=== PATIENT | male | born 1960 | race Caucasian/White ===

== ENCOUNTER → 2022-02-03 | Outpatient (CLI) | payer OTHER, SELFPAY ==
--- NOTE | 2022-02-03 06:47 | ECHOCS_ITS ---
Version 2 Reason For Study: Abn EKG Procedure This was a 2D Doppler, Color Flow transthoracic echocardiogram. Contrast injection was performed. Exam performed in department. Left Ventricle Normal LV size. Left ventricular systolic function is normal. The estimated ejection fraction is 60 %. Stage 1 diastolic dysfunction. No regional wall motion abnormalities noted. Right Ventricle Normal RV size. Normal systolic function. Atria Normal left atrium. Normal right atrium. Probable patent foramen ovale. Mitral Valve Normal mitral valve. Mild (1+) eccentric mitral valve insufficiency. Tricuspid Valve Normal tricuspid valve. Mild tricuspid valve insufficiency. Pulmonary artery systolic pressure is 20 mmHg. Aortic Valve Normal aortic valve. Trisinus/trileaflet aortic valve. Trivial aortic valve insufficiency. Pulmonic Valve Normal pulmonic valve. Trivial pulmonic valve insufficiency identified. Great Vessels Normal aortic root. The pulmonary artery is normal size. Normal inferior vena cava. Pericardium/Pleural No pericardial effusion. Medication Performed a rapid injection of agitated mix of 9 cc saline and 1cc air to assess for atrial septal defect. Diluted definity 2ml given slow IV push to enhance endocardial definition. MMode/2D Measurements & Calculations LVIDd: 5.3 cm IVSd: 0.90 cm Ao root diam: 3.6 cm LVIDs: 3.3 cm LVPWd: 1.0 cm RVDd: 3.7 cm FS: 37.9 % LAV(MOD-bp): 42.1 ml LVAd ap4: 31.6 cm2 LVAd ap2: 31.4 cm2 LAV(MOD-bp) Indexed: 21.1 ml/m2 LVLd ap4: 7.9 cm LVLd ap2: 7.6 cm LAV(MOD-sp2): 40.3 ml EDV(MOD-sp4): 103.0 ml EDV(MOD-sp2): 107.2 ml LAV(MOD-sp4): 40.9 ml EDV(sp4-el): 106.9 ml EDV(sp2-el): 110.5 ml LVAs ap4: 20.4 cm2 LVAs ap2: 18.3 cm2 LVLs ap4: 6.8 cm LVLs ap2: 6.2 cm ESV(MOD-sp4): 51.1 ml ESV(MOD-sp2): 45.5 ml ESV(sp4-el): 52.1 ml ESV(sp2-el): 45.4 ml EF(MOD-sp4): 50.4 % EF(MOD-sp2): 57.6 % EF(sp4-el): 51.3 % SV(MOD-sp4): 51.9 ml SV(MOD-sp2): 61.8 ml SV(sp4-el): 54.9 ml LA A4 area: 16.6 cm2 LA dimension(2D): 3.7 cm RA A4 area: 12.0 cm2 Doppler Measurements & Calculations MV E max timi: 51.8 cm/sec Lat Peak E' Timi: 7.6 cm/sec Med Peak E' Timi: 5.7 cm/sec MV A max timi: 60.2 cm/sec E/E' lat: 6.9 E/E' med: 9.0 MV E/A: 0.86 Ao V2 max: 124.6 cm/sec LV V1 max: 111.0 cm/sec PA V2 max: 87.4 cm/sec Ao max P.2 mmHg LV V1 max P.9 mmHg Ao V2 mean: 90.0 cm/sec Ao mean P.5 mmHg Ao V2 VTI: 26.6 cm PI end-d timi: 87.4 cm/sec TR max timi: 202.6 cm/sec TR max P.4 mmHg ECHO/Echo Complete W/ Contrast Interpretation Summary Normal LV size. Left ventricular systolic function is normal. The estimated ejection fraction is 60 %. Stage 1 diastolic dysfunction. Mild (1+) eccentric mitral valve insufficiency. Pulmonary artery systolic pressure is 20 mmHg. Probable patent foramen ovale. Contrast injection was performed. Ordering Physician: JUDE ALMONTE Referring Physician: Jude Almonte Performed By: Joceline Staples, RAHEEM, RVT
--- NOTE | 2022-02-03 21:14 | STRESSREP ---
Stress Test Report Exercise stress myocardial perfusion test. 61-year-old male with a history of abnormal EKG. Stress protocol: Resting KG demonstrates normal sinus rhythm with a rate of 67 bpm normal intervals are noted resting blood pressure is 138/84 mmHg. The patient exercised according to regular Leonides protocol for a total duration of 8 minutes. Patient completed 2 minutes into stage III of the Leonides protocol. The maximum heart rate attained was 146 bpm which was 92% of max impacted heart rate the maximum workload was 10.1 metabolic equivalents. At rest there were no ST or T wave changes noted to suggest ischemia and at peak exercise upsloping ST changes were noted with did not meet the criteria for ischemia. No clinical angina was noted the test was terminated due to target heart rate being achieved. The peak blood pressure was 178/80 mmHg. Myocardial perfusion protocol. 12.0 mCi of technetium 99m sestamibi was injected at rest. The patient exercised according to regular Leonides protocol and at peak exercise 35.2 mCi of technetium 99m sestamibi was injected stress images were obtained stress and rest images were reconstructed and compared in the short axis vertical long and horizontal long axis. Gated images were also obtained to Perfusion SPECT analysis: Review of the stress images demonstrate normal uptake of tracer noted in all areas of the myocardium. The resting images similar demonstrate normal uptake of tracer noted in all areas of the myocardium. No areas of reversibility are noted suggest ischemia no previous infarct is noted. Gated SPECT analysis: The gated ejection fraction is 62%. Conclusion: Normal exercise myocardial perfusion stress test at a high workload. Good functional capacity. No ischemia noted. Preserved ejection fraction.
== END | disposition home or self-care (01) ==
LOC: CVS 06:18
DX: R94.31 Abnormal electrocardiogram [ECG] [EKG] (principal)
CPT/HCPCS: 78452; 93017; 93306; A9500; Q9957; A4216; C8929